=== PATIENT | female | born 1945 | race Caucasian/White ===

== ENCOUNTER 2022-12-03 10:00 | Day surgery (SDC) | payer OTHER ==
[2022-11-26 12:00] LABS: BASOPHILS % (AUTO) 0.9 % (0-1); EOSINOPHILS # (AUTO) 0.2 X10'3 (0-0.9); EOSINOPHILS % (AUTO) 2.8 % (0-6); LYMPHOCYTES # (AUTO) 1.8 X10'3 (1.1-4.8); LYMPHOCYTES % (AUTO) 32.4 % (21-51); MEAN CORPUSCULAR HEMOGLOBIN 30.3 PG (27.0-31.0); MEAN CORPUSCULAR HGB CONC 33.3 g/dL (33.0-36.5); MEAN CORPUSCULAR VOLUME 91.1 FL (78-98); MEAN PLATELET VOLUME 7.9 FL (7.4-10.4); MONOCYTES # (AUTO) 0.4 X10'3 (0-0.9); MONOCYTES % (AUTO) 7.4 % (2-12); NEUTROPHILS # (AUTO) 3.1 X10'3 (1.8-7.7); NEUTROPHILS % (AUTO) 56.5 % (42-75); PRE OP HEMATOCRIT 38.7 % (35.0-45.0); PRE OP HEMOGLOBIN 12.9 g/dL (12.0-16.0); PRE OP PLATELET COUNT 240 X10'3 (140-440); RED BLOOD COUNT 4.25 X10'6 (4.20-5.60); RED CELL DISTRIBUTION WIDTH 13.7 % (11.5-14.5)
[2022-11-26 12:11] LABS: CLARITY,URINE CLOUDY (Clear); COLOR,URINE YELLOW (Yellow); GLUCOSE, URINE NEGATIVE (Neg); KETONES,URINE NEGATIVE (Neg); LEUKOCYTE ESTERASE ,URINE NEGATIVE (Neg); NITRITES, URINE NEGATIVE (Neg); OCCULT BLOOD,URINE NEGATIVE (Neg); PH,URINE 6.5 (4.8-8.0); PROTEIN,URINE NEGATIVE (Neg); UROBILINOGEN,URINE 0.2 E.U/dL (0.2-1.0)
[2022-11-26 12:12] LABS: ALBUMIN 3.4 G/DL (3.4-5.0); ALBUMIN/GLOBULIN RATIO 0.9 (1.1-1.5); ALKALINE PHOSPHATASE 100 IU/L (46-116); BLOOD UREA NITROGEN 16 MG/DL (7-18); BUN/CREATININE RATIO 15.8 (6.6-38.0); CALCIUM 8.8 MG/DL (8.5-10.1); CHLORIDE 103 MMOL/L (99-107); CREATININE 1.01 MG/DL (0.40-0.90); PRE OP ALT 29 U/L (30-65); PRE OP ANION GAP 4 (8-16); PRE OP AST 32 U/L (10-37); PRE OP BILIRUB, TOTAL 0.4 MG/DL (0.0-1.0); PRE OP GLUCOSE 96 MG/DL (70-104); PRE OP POTASSIUM 4.4 MMOL/L (3.4-5.1); PRE OP SODIUM 139 MMOL/L (135-145); TOTAL CARBON DIOXIDE 32.2 MMOL/L (24-32); TOTAL PROTEIN 7.1 G/DL (6.4-8.2); eGFR 53 ML/MIN
[2022-11-26 12:19] LABS: SQUAMOUS EPITHELIAL CELL,UR MANY /LPF (FEW); UA COLLECTION TYPE CLN CATCH MIDSTREAM
[2022-11-26 12:20] LABS: BACTERIA,URINE 1+ /HPF (Neg); RBC,URINE 0-2 /HPF (0-2); WBC,URINE 0-4 /HPF (0-4)
[~2022-12-03] VITALS: Ht 157.5 cm; Wt 91.5 kg
[2022-12-03] VITALS (8 sets, daily range): BP systolic 112–156; BP diastolic 69–88
[~2022-12-03 10:00] MED LIST: ASPI-12 PO; ATOR-2 PO; DULO60CA65 PO; FURO20TA4 PO; OMEGA Q PLUS PO; ceFAZolin inj. 2,000 MG in dextrose 5%-water 100 ML IV ONE; famotidine 20mg tablet PO ONE; ringers solution, lacted 1,000 ML IV SCH
[2022-12-03] MEDS ORDERED: bacitracin 15gm ointment TP ONE (14:44)
[2022-12-03] MEDS ORDERED: cloNIDine hcl/PF 100mcg/ml inj ONE (14:56)
[2022-12-03] MEDS ORDERED: propofol inj 20 ML IV ONE (14:58)
[2022-12-03] MEDS ORDERED: fentaNYL/PF 50MCG/1 ML 2ML syringe ONE (14:58)
[2022-12-03] MEDS ORDERED: midazolam 1 mg/ML 2ml injection ONE (14:58)
[2022-12-03] MEDS ORDERED: morphine 4 MG/ML inj SYRINge IV PRN (15:10)
[2022-12-03] MEDS ORDERED: morphine 2 MG/ML inj. syringe IV PRN (15:10)
[2022-12-03] MEDS ORDERED: proCHLORperazine 10 MG/2 ml inj IV PRN (15:10)
[2022-12-03] MEDS ORDERED: meperidine/PF 25mg/ml syringe IV PRN ×3 (15:10)
[2022-12-03] MEDS ORDERED: ondansetron/PF 4mg/2ml inj IV PRN (15:10)
[2022-12-03] MEDS ORDERED: ringers solution, lacted 1,000 ML IV SCH (15:10)
[2022-12-03] MEDS ORDERED: sevoflurane 250ml liquid IH ONE (15:38)
[2022-12-03] MEDS ORDERED: ondansetron/PF 4mg/2ml inj ONE (17:13)
[2022-12-03] MEDS ORDERED: dexamethasone sod phosphate 4mg/ml inj. ONE (17:13)
--- NOTE | 2022-12-03 17:21 | NUR ---
Received from OR via [facility], accompanied by Anesthesiologist and report given by [facility]LEX Anesthesiologist. PATIENT WAKING UP, DENIES PAIN, V/S WNL, 20G TO LEFT HAND, DRESSING to LEFT ANKLE C/D/I with ICE PACK and MARKED BLOOD-REINFORCED DRESSING BY . Addendum: 12/03/22 at 1745 by Trevin Kramer RN Amended: Links added.
--- NOTE | 2022-12-03 18:21 | NUR ---
ALL DISCHARGE CRITERIA HAS BEEN MET. VSS, PAIN AT A TOLERABLE LEVEL, ABLE TO SAFELY AMBULATE WITH SURGICAL BOOT AND TRANSFER SELF. IV TAKEN OUT WITHOUT ANY COMPLICATIONS. ALL DISCHARGE INSTRUCTIONS COVERED WITH PATIENT AND ALL QUESTIONS ANSWERED. PATIENT TAKEN OUT VIA WHEELCHAIR WITH ALL BELONGINGS TO PERSONAL VEHICLE WHERE FAMILY DROVE PATIENT HOME. Addendum: 12/03/22 at 1824 by Trevin Kramer RN Amended: Links added.
== END 2022-12-03 18:21 | disposition home or self-care (01) ==
LOC: PAS 10:00
PROVIDERS: ATTEND Podiatrist Foot & Ankle Surgery
DX: S93.492A Sprain of other ligament of left ankle, initial encounter (principal); S93.432A Sprain of tibiofibular ligament of left ankle, initial encounter; M65.872 Other synovitis and tenosynovitis, left ankle and foot; M94.8X7 Other specified disorders of cartilage, ankle and foot; M19.072 Primary osteoarthritis, left ankle and foot; M17.11 Unilateral primary osteoarthritis, right knee; I25.2 Old myocardial infarction; K21.9 Gastro-esophageal reflux disease without esophagitis; F32.9 Major depressive disorder, single episode, unspecified; E66.9 Obesity, unspecified; Z68.36 Body mass index [BMI] 36.0-36.9, adult; G89.18 Other acute postprocedural pain; Z95.1 Presence of aortocoronary bypass graft; Z79.899 Other long term (current) drug therapy; Z79.82 Long term (current) use of aspirin; Z88.2 Allergy status to sulfonamides; Z90.710 Acquired absence of both cervix and uterus; Z98.890 Other specified postprocedural states; Z96.651 Presence of right artificial knee joint; Z72.89 Other problems related to lifestyle; Z87.891 Personal history of nicotine dependence; Z82.49 Family history of ischemic heart disease and other diseases of the circulatory system; X50.1XXA Overexertion from prolonged static or awkward postures, initial encounter; Y93.89 Activity, other specified; Y92.89 Other specified places as the place of occurrence of the external cause; Y99.8 Other external cause status
CPT/HCPCS: 29895; 29897; 36415; 64445; 64447; 80053; 81001; 82948; 85025; 93005; A6222; J0690; J0735; J1100; J2250; J2405; J2704; J3010; J7060; J7120; Z7506; Z7508; Z7512; A4618; A6449; A7000